=== PATIENT | female | born 1950 | race Two or more races ===

== ENCOUNTER 2018-12-19 11:52 | Emergency (ER) | payer OTHER ==
[~2018-12-19] VITALS: Ht 160 cm; Wt 64.9 kg
[~2018-12-19 11:52] MED LIST: DIOVAN40 MG; METFORMIN HCL500 MG; NEURONTIN600 MG; TOPROL XL25 M1
[2018-12-19] MEDS ORDERED: LIPITOR20 MG (12:05)
[2018-12-19] MEDS ORDERED: ASA81 MG (12:05)
== END 2018-12-19 14:23 | disposition home or self-care (01) ==
LOC: ER 11:52
DX: N30.81 Other cystitis with hematuria (principal)

== ENCOUNTER 2020-07-22 08:08 | Outpatient (CLI) | payer OTHER | END 2020-07-22 15:00 | disposition home or self-care (01) | LOC: LAB 08:08 | PROVIDERS: ATTEND Internal Medicine Pulmonary Disease | DX: R05 Cough (principal); Z20.828 Contact with and (suspected) exposure to other viral communicable diseases; R06.02 Shortness of breath; R50.9 Fever, unspecified ==

== ENCOUNTER → 2020-07-22 | Outpatient (CLI) | payer OTHER ==
[~2020-07-22] MED LIST changes: +ASA81 MG; +LIPITOR20 MG
== END | disposition home or self-care (01) ==
LOC: ASH CLINIC 08:21
DX: Z23 Encounter for immunization (principal); U07.1 COVID-19

== ENCOUNTER 2021-02-19 18:21 | Emergency (ER) | payer OTHER ==
[~2021-02-19] VITALS: Ht 157.5 cm; Wt 62.6 kg
[2021-02-19] MEDS ORDERED: AVALIDE (19:07)
[2021-02-19] MEDS ORDERED: NORVASC5 MG (19:08)
[2021-02-19] MEDS ORDERED: GABAPENTIN (19:09)
== END 2021-02-19 20:36 | disposition home or self-care (01) ==
LOC: ER 18:21
DX: G57.82 Other specified mononeuropathies of left lower limb (principal)

== ENCOUNTER 2021-12-12 11:17 | Emergency (ER) | payer OTHER ==
[~2021-12-12] VITALS: Ht 157.5 cm; Wt 59.4 kg
[~2021-12-12 11:17] MED LIST changes: +AVALIDE; +GABAPENTIN; +NORVASC5 MG
[2021-12-12] MEDS ORDERED: GABAPENTIN400 MG PO (11:43)
[2021-12-12] MEDS ORDERED: GABAPENTIN100 M2 PO (11:43)
[2021-12-12] MEDS ORDERED: CENTRUM SILVER1 EAC5 PO (11:44)
[2021-12-12] MEDS ORDERED: PROAIR HFA8.5 GM (11:44)
[2021-12-12] MEDS ORDERED: FLONASE16 GM NASAL (11:45)
== END 2021-12-12 15:22 | disposition home or self-care (01) ==
LOC: ER 11:17
DX: M54.89 Other dorsalgia (principal); R06.02 Shortness of breath; Z20.822 Contact with and (suspected) exposure to COVID-19; E11.9 Type 2 diabetes mellitus without complications; Z79.84 Long term (current) use of oral hypoglycemic drugs; I10 Essential (primary) hypertension

== ENCOUNTER → 2021-12-15 | Outpatient (CLI) | payer OTHER ==
[~2021-12-15] MED LIST changes: +CENTRUM SILVER1 EAC5 PO; +FLONASE16 GM NASAL; +GABAPENTIN100 M2 PO; +GABAPENTIN400 MG PO; +PROAIR HFA8.5 GM
== END | disposition home or self-care (01) ==
LOC: NUCLEAR 12-14 07:00
DX: I25.10 Atherosclerotic heart disease of native coronary artery without angina pectoris (principal); E11.9 Type 2 diabetes mellitus without complications; I10 Essential (primary) hypertension; E78.00 Pure hypercholesterolemia, unspecified; F17.210 Nicotine dependence, cigarettes, uncomplicated
CPT/HCPCS: 78452; 93017; A9500; J0153